=== PATIENT | male | born 1935 | race Caucasian/White ===

== ENCOUNTER 2018-03-12 08:46 | Day surgery (SDC) | payer MEDICARE ==
[~2018-03-12 08:46] MED LIST: Buffered Lidocaine 0.9% SYRIN* 5 ML/SYR SYRINGE INTRADERM ONE; Lactated Ringers 1000 ML Bag* 1,000 ML IV SCH
[2018-03-12] MEDS ORDERED: ceFAZolin 2 GM PREMIX in ORs 2 GM/50 ML BAG IVPB ONE (09:33)
[2018-03-12] MEDS ORDERED: Artificial Tear OPHTH.OINT* 3.5 GM ONE (10:12)
[2018-03-12] MEDS ORDERED: Lidocain 1% EPI 1:100,000 * 30 ML MDV ONE ×2 (10:12→10:32)
[2018-03-12] MEDS ORDERED: Mineral Oil Sterile, TOPICAL* 25 ML BTL ONE (10:13)
[2018-03-12] MEDS ORDERED: Bupivacaine 0.25% SDV PF* 10 ML VIAL INJ ONE (10:13)
[2018-03-12] MEDS ORDERED: Naloxone* 0.4 MG/ML 1 ML VIAL IV PRN (10:26)
[2018-03-12] MEDS ORDERED: fentaNYL* 50 MCG/ML 2 ML VIAL (100 MCG VIAL) ONE (10:36)
[2018-03-12] MEDS ORDERED: Propofol* 10 MG/ML 20 ML BTL ONE ×2 (10:37→11:46)
[2018-03-12] MEDS ORDERED: Lidocaine 2% PF * 5 ML VIAL ONE (10:57)
[2018-03-12 13:23] VITALS: BP 109/73
== END 2018-03-12 17:11 | disposition home or self-care (01) ==
LOC: OR 08:46
PROVIDERS: ATTEND Plastic Surgery
DX: C44.212 Basal cell carcinoma of skin of right ear and external auricular canal (principal); Z87.891 Personal history of nicotine dependence; Z85.828 Personal history of other malignant neoplasm of skin; M19.90 Unspecified osteoarthritis, unspecified site
CPT/HCPCS: 88305; 88331; 88332; A9270-GY; J0690; J2704; J3010; J3490

== ENCOUNTER 2019-03-09 05:39 | Day surgery (SDC) | payer MEDICARE ==
--- NOTE | 2019-02-18 10:25 | HP ---
AMENDED REPORT NOW INCLUDES DESIGNATED COSIGNER CC: Dr. Dao * PREOPERATIVE HISTORY AND PHYSICAL: DATE OF ADMISSION/SURGERY: 03/09/19 This patient is scheduled for same-day surgery admission by Dr. Morris on 03/09/19. DATE OF PREOPERATIVE HISTORY AND PHYSICAL EXAMINATION: 02/16/19. ATTENDING SURGEON: Dr. Raheel Morris * (dictated by Francisca Sanchez, BALJINDER). CHIEF COMPLAINT: Bilateral inguinal hernias. HISTORY OF PRESENT ILLNESS: The patient is an 83-year-old male recently evaluated by Dr. Morris for bilateral inguinal hernias. The patient reported that he had a "sore stomach" last June and again more recently; the symptoms started after he ate a whole bowl of popcorn. He denied any nausea or vomiting or change in bowel habits. He took some Tylenol with minimal relief and then went to see Dr. Dao, who is his primary care provider. He had a CAT scan of the abdomen and pelvis, which showed bilateral inguinal hernias. Dr. Morris examined the patient and noticed bilateral inguinal hernias, the right is fully reducible, the left incompletely reduced but nontender. Dr. Morris described the nature of inguinal hernias and discussed the various surgical options and the patient is in agreement to proceed with robotic bilateral inguinal hernia repair with mesh as a same-day surgery procedure under general anesthesia. Dr. Morris described the relevant risks and benefits and today, I described the expected postoperative care and recovery. The patient has had a chance to ask questions and stated that he understands the information and is satisfied with the answers given to his questions. He will sign surgical consent on the day of surgery. PAST MEDICAL HISTORY: Significant for hyperkalemia with most recent potassium of 5.6 on 12/30/18 and this will be repeated preoperatively; benign prostatic hypertrophy; and benign neoplasm of the colon. 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 MEDICATIONS: Vitamin B12 occasionally. He was on chlorthalidone 25 mg p.o. daily for 1 month and then declined another refill and I have notified Dr. Dao's office that he has discontinued that medication. He states that he was put on the chlorthalidone for high blood pressure and he knows that his blood pressure has been within normal range and decided to stop taking it. ALLERGIES: No known drug allergies. FAMILY HISTORY: No known anesthesia complications, bleeding tendencies, or clotting disorders. 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 He is a nonsmoker and denies the use of alcohol or other substances; he states that his son and grandson will be staying with him for several days postoperatively. REVIEW OF SYSTEMS: Constitutional: No fevers, chills, excessive fatigue, or weight loss. He has good energy and states that he can climb 3 flights of stairs without shortness of breath. General: No previous anesthesia complications. No history of deep vein thrombosis or pulmonary embolism. No bleeding tendencies or blood transfusions. ENMT: No problems with hearing. Moist mucous membranes. Endocrine: No diabetes or thyroid disease. Hematologic : No easy bruising or bleeding. Respiratory: He can climb 3 flights of stairs without dyspnea. No chronic cough. Cardiovascular: No anginal chest pain or palpitations. The patient saw Dr. Faith in January 2018 prior to undergoing plastic surgery on his ear and he had an echocardiogram at that time that revealed an ejection fraction of 55% to 60%. He also underwent a nuclear stress test with no evidence of ischemia or infarction and his 12-lead EKG showed normal sinus rhythm; I triaged Dr. Faith to see if this patient needed any preoperative clearance before this procedure and he said only if the patient was exhibiting cardiac symptoms and the patient is pain- free and as previously mentioned can walk up 3 flights of stairs without any difficulty. Gastrointestinal: No recent nausea or vomiting. No chronic constipation. No current abdominal pain. Please see history of present illness. Genitourinary: No dysuria. Musculoskeletal: Normal strength and tone. Integumentary: No chronic rashes or skin changes. Neurologic: No headache, blurred vision, or areas of focal weakness or numbness. Psychiatric: No anxiety, depression, or insomnia reported. PHYSICAL EXAMINATION GENERAL SURVEY: The patient is an 83-year-old male, well developed, well nourished, in no acute distress. VITAL SIGNS: Height 67 inches, weight 154 pounds, body mass index 24.1. Blood pressure 124/70, pulse 72 and regular, respiratory rate 16, temperature 98.1 tympanic. HEENT: Benign. NECK: Supple. No carotid bruits bilaterally. No cervical lymphadenopathy. LUNGS: Breath sounds bilaterally clear and equal. HEART: Regular rate and rhythm. No murmurs or rubs appreciated. ABDOMEN: Active bowel sounds. Soft, nondistended, nontender throughout. Well - healed surgical scar in right lower quadrant. Inguinal exam done by Dr. Morris revealed a fully reducible right inguinal hernia and an incompletely reduced but nontender left inguinal hernia. RECTAL: Exam deferred. EXTREMITIES: Warm without edema or skin ulceration. NEUROLOGIC: Alert and oriented x3. Steady gait. SKIN: Warm, dry, intact. IMPRESSION: Bilateral inguinal hernias. PLAN: Robotic bilateral inguinal hernia repair with mesh as a same-day surgery procedure with general anesthesia on 03/09/19; I will obtain a result of a preoperative potassium through Dr. Dao's office. DOTTIE SANCHEZ NP [id number]/[facility] #: [id number] GLADYS
[~2019-03-09 05:39] MED LIST changes: -Buffered Lidocaine 0.9% SYRIN* 5 ML/SYR SYRINGE INTRADERM ONE; +Buffered Lidocaine 1% SYRIN* 1 ML/SYRINGE INTRADERM ONE; -Lactated Ringers 1000 ML Bag* 1,000 ML IV SCH
[2019-03-09] MEDS ORDERED: NS 0.9% 1000 ML** 1,000 ML IV SCH (06:00)
[2019-03-09] MEDS ORDERED: Famotidine IV* 10 MG/ML 2 ML (20 mg) IV ONE (06:00)
[2019-03-09] MEDS ORDERED: ceFAZolin 2 GM PREMIX in ORs 2 GM/50 ML BAG ONE (06:20)
[2019-03-09] MEDS ORDERED: Buffered Lidocaine 1% SYRIN* 1 ML/SYRINGE INTRADERM ONE (06:20)
[2019-03-09] MEDS ORDERED: Famotidine IV* 10 MG/ML 2 ML (20 mg) ONE (06:21)
[2019-03-09] MEDS ORDERED: Bupivacaine 0.25% EPI 200,000* 30 ML SDV ONE (06:52)
[2019-03-09 06:58] LABS: BUN/Creatinine Ratio 20.7 (8-20); Calcium 9.9 mg/dL (8.6-10.3); Potassium 4.1 mmol/L (3.5-5.0)
[2019-03-09] MEDS ORDERED: fentaNYL* 50 MCG/ML 2 ML VIAL (100 MCG VIAL) ONE ×2 (07:13→11:17)
[2019-03-09] MEDS ORDERED: Dexamethasone IV* 4 MG/ML 1 ML (4 MG) ONE (07:13)
[2019-03-09] MEDS ORDERED: Lidocaine 2% MPF* 2 ML VIAL ONE (07:13)
[2019-03-09] MEDS ORDERED: Ondansetron INJ* 2 MG/ML VIAL ONE (07:13)
[2019-03-09] MEDS ORDERED: Propofol* 10 MG/ML 20 ML BTL ONE (07:13)
[2019-03-09] MEDS ORDERED: Ketorolac INJ* 30 MG/ML 1 ML VIAL ONE (07:13)
[2019-03-09] MEDS ORDERED: Rocuronium* 10 MG/ML VIAL ONE (07:14)
[2019-03-09] MEDS ORDERED: Midazolam* 1 MG/ML 5 ML VIAL (5 MG) ONE (07:14)
[2019-03-09] MEDS ORDERED: Sugammadex * 500 MG/5 ML VIAL IV PUSH ONE (07:29)
[2019-03-09] MEDS ORDERED: Levalbuterol HFA INHALER* 1 PUFF MDI ONE (07:31)
[2019-03-09] MEDS ORDERED: Phenylephrine 40 MCG/ML SYRINGE ONE (07:56)
[2019-03-09] MEDS ORDERED: Ondansetron INJ* 2 MG/ML VIAL IV PRN (08:38)
[2019-03-09] MEDS ORDERED: Levalbuterol 0.63MG/3ML NEB* UNIT OF USE INH PRN (08:38)
[2019-03-09] MEDS ORDERED: Acetaminophen IV 1GM/100ML * 1,000 MG/100 ML VIAL IVPB ONE (08:38)
[2019-03-09] MEDS ORDERED: Naloxone* 0.4 MG/ML 1 ML VIAL IV PRN (08:38)
[2019-03-09] MEDS ORDERED: EPHEDrine (Pressors)* 50 MG/ML VIAL ONE (09:27)
[2019-03-09] MEDS ORDERED: Acetaminophen IV 1GM/100ML * 100 ML ONE (10:27)
[2019-03-09] MEDS: fentaNYL* 50 MCG/ML 2 ML VIAL (100 MCG VIAL) IV PRN ×2 (11:18→11:57)
[2019-03-09] MEDS ORDERED: Levalbuterol 0.63MG/3ML NEB* UNIT OF USE INH ONE (12:18)
[2019-03-09 15:27] VITALS: BP 133/72
--- NOTE | 2019-03-09 22:33 | OP ---
CC: Ludwig Kaur MD * DATE OF OPERATION: 03/09/19 - SDS DATE OF : 31 SURGEON: Raheel Morris MD [employer] EDUCATIONAL SPECIALIST: VALENTÍN Callahan ANESTHESIOLOGIST: Juan Diego Atkinson MD ANESTHESIA: General endotracheal. PRE-OP DIAGNOSIS: Bilateral inguinal hernias. POST-OP DIAGNOSIS: Bilateral direct inguinal hernias. OPERATIVE PROCEDURE: Robotic bilateral inguinal hernia repair with mesh. ESTIMATED BLOOD LOSS: Minimal. IV FLUIDS: Crystalloid. SPECIMEN: None. DRAINS: None. COMPLICATIONS: None. COUNTS: Instrument, needle, and sponge counts were correct. DESCRIPTION OF PROCEDURE: The patient was brought to the operating room and placed on the table supine. Sequential compression devices were placed on both lower extremities. General anesthesia was administered. Booth catheter was placed. The patient was positioned and padded appropriately. He was prepped and draped in the usual sterile fashion. A time-out was performed. Local anesthetic was infiltrated into the skin and soft tissue prior to making each incision. Pneumoperitoneum was achieved using a Veress needle to a pressure of 12 mmHg. Subsequently, an 8 mm trocar was placed in the left upper quadrant and additionally two other 8 mm trocars, one in the supraumbilical midline and one in the right upper quadrant. Laparoscopic Medtronic ProGrip mesh was introduced x2 along with the 3-0 V-Loc 90 sutures. The robot was docked in standard fashion. The right inguinal hernia was first approached. Peritoneal incision was made 8 cm cephalad to the inguinal canal. The preperitoneal space was developed using blunt dissection down to the pubic symphysis. Direct inguinal hernia was identified, containing fat; this was reduced. Chris's ligament was identified. Inferior epigastric vessels were identified and preserved. Dissection proceeded laterally to the anterior superior iliac spine. Spermatic cord structures were identified and preserved. A 10 x 15 cm ProGrip mesh was positioned crossing the midline to cover the direct, indirect and femoral spaces. Subsequently, the peritoneal flap was closed with the V-Loc 90 suture. There were some rents in the peritoneum due to its fragile nature. Attention was then turned to the left side. In a similar fashion, the preperitoneal space was entered on the left side and again there was a direct inguinal hernia containing a fat, which was completely reduced. Dissection then again proceeded laterally to the anterior superior iliac spine preserving the cord structures. No indirect inguinal hernia was identified. Mesh was again positioned crossing the midline. Again, it was the Medtronic laparoscopic ProGrip mesh. After positioning this, the peritoneal flap was closed again with a 3-0 V-Loc 90 suture. At this point, inspection of the right side was again performed and it was decided to place additional sutures of 3-0 Vicryl to close down the peritoneal defect and this was achieved satisfactorily. All needles were removed and the instrumentation and trocars were removed without difficulty. Carbon dioxide was released. Skin incisions were closed with 4-0 Monocryl in subcuticular fashion and DermaFlex applied. The patient tolerated the procedure well, was extubated and transferred to Recovery in stable condition. [id number]/[facility] #: [id number] MTDD
== END 2019-03-09 15:52 | disposition home or self-care (01) ==
LOC: OR 05:39
PROVIDERS: ATTEND Surgery
DX: K40.20 Bilateral inguinal hernia, without obstruction or gangrene, not specified as recurrent (principal); I10 Essential (primary) hypertension; Z87.891 Personal history of nicotine dependence; N40.0 Benign prostatic hyperplasia without lower urinary tract symptoms; E87.5 Hyperkalemia
CPT/HCPCS: 49650; S2900; 36415; 80048; A9270-GY; C1781; J0690; J1100; J1885; J2250; J2405; J2704; J3010

== ENCOUNTER 2020-04-28 13:53 | Observation (INO) ==
[2020-04-28 14:42] LABS: ABS Lymphocytes 0.7 10^3/ul (1.0-4.8); ABS Monocytes 0.6 10^3/ul (0-0.8); ABS Neutrophils 5.3 10^3/ul (1.5-7.7); Eosinophil % 0.4 %; Hematocrit 41 % (42-52); Hemoglobin 14.3 g/dL (14.0-18.0); Lymphocyte % 10.6 %; Mean Corpuscular HGB Conc 35 g/dL (31-36); Mean Corpuscular Hemoglobin 33 pg (27-31); Mean Corpuscular Volume 94 fL (80-94); Mean Platelet Volume 6.8 fL (7.4-10.4); Nucleated Red Blood Cells % 0.1; Platelet Count 265 10^3/uL (150-450); Red Blood Count 4.36 10^6 /uL (4.18-5.48); Red Cell Distribution Width 14 % (10-15); White Blood Count 6.6 10^3/uL (3.5-10.8)
[2020-04-28 14:49] LABS: Activated Partial Thrombo Time 29.6 seconds (26.0-38.0)
[2020-04-28 15:14] LABS: CKMB ng/mL 2.9 ng/mL (0.6-6.3)
[2020-04-28 15:40] LABS: Albumin 4.4 g/dL (3.2-5.2); Albumin/Globulin Ratio 1.3 (1-3); BUN/Creatinine Ratio 16.7 (8-20); C Reactive Protein 17.14 mg/L (<8.01); Calcium 9.4 mg/dL (8.6-10.3); EGFR African American 78.4 (>60); EGFR Non-African American 64.8 (>60); Globulin 3.5 g/dL (2-4); Potassium 4.2 mmol/L (3.5-5.0); Total Bilirubin 0.6 mg/dL (0.2-1.0); Total Protein 7.9 g/dL (6.4-8.9)
[2020-04-28] MEDS ORDERED: Dexamethasone IV 4 MG/ML 5 ML VIAL (20 MG) IVPB ONE (16:01)
[2020-04-28 16:30] LABS: Troponin I 0.02 ng/mL (<0.03)
[2020-04-28] MEDS ORDERED: Dexamethasone IV 10 MG in NS 0.9% 50 ML IVPB ONE (17:00)
[2020-04-28 17:23] LABS: Urine Appearance Clear; Urine Bilirubin Negative (Negative); Urine Blood Negative (Negative); Urine Color Yellow; Urine Glucose Negative (Negative); Urine Ketones Trace (Negative); Urine Nitrite Negative (Negative); Urine Protein Negative (Negative); Urine Urobilinogen Negative (Negative)
[2020-04-28 17:39] LABS: Influenza A Molecular Negative (Negative); Influenza B Molecular Negative (Negative)
[2020-04-28] MEDS ORDERED: Albuterol HFA INHALER 8 gm MDI INH PRN (17:55)
[2020-04-28] MEDS ORDERED: Iohexol 350 (CONTRAST) 500 ML MDV IV ONE (18:20)
[2020-04-28] MEDS ORDERED: Enoxaparin 40 MG/0.4 ML SYR SUBCUT SCH (21:00)
[2020-04-29 11:15] VITALS: BP 135/66
== END 2020-04-29 12:45 | disposition home or self-care (01) ==
LOC: ED 13:53 → MED 13:53
PROVIDERS: ADMIT Internal Medicine; ATTEND Internal Medicine

== ENCOUNTER 2022-04-09 11:40 | Observation (INO) ==
[2022-04-09] MEDS ORDERED: Albuterol HFA INHALER 8 gm MDI INH ONE (12:03)
[2022-04-09] MEDS ORDERED: methylPREDNISolone SOD SUCC 125 mg 2 ML VIAL IV ONE (12:03)
[2022-04-09 12:31] LABS: ABS Lymphocytes 0.8 10^3/ul (1.0-4.8); ABS Monocytes 0.4 10^3/ul (0-0.8); Eosinophil % 0.3 %; Hematocrit 42 % (42-52); Hemoglobin 14.1 g/dL (14.0-18.0); Lymphocyte % 15.2 %; Mean Corpuscular HGB Conc 34 g/dL (31-36); Mean Corpuscular Hemoglobin 33 pg (27-31); Mean Corpuscular Volume 96 fL (80-94); Mean Platelet Volume 6.9 fL (7.4-10.4); Platelet Count 260 10^3/uL (150-450); Red Blood Count 4.33 10^6 /uL (4.18-5.48); Red Cell Distribution Width 14 % (10-15); White Blood Count 5.3 10^3/uL (3.5-10.8)
[2022-04-09 12:41] LABS: INR 1.09 (0.88-1.18)
[2022-04-09 12:50] LABS: PCO2 Arterial 38 mmHg (35-45); PO2 Arterial 83 mmHg (80-100)
[2022-04-09 13:14] LABS: Albumin 4.6 g/dL (3.2-5.2); Albumin/Globulin Ratio 1.6 (1-3); Calcium 9.6 mg/dL (8.6-10.3); Globulin 2.8 g/dL (2-4); Potassium 4.4 mmol/L (3.5-5.0); Total Bilirubin 0.8 mg/dL (0.2-1.0); Total Protein 7.4 g/dL (6.4-8.9); eGFR CKD-EPI 60.6 (>60)
[2022-04-09] MEDS ORDERED: Amoxicillin/Clavul 875/125 TAB (Augmentin 875 tab) PO ONE (13:28)
[2022-04-09] MEDS ORDERED: Albuterol/Ipratropium NEB.SOL (2.5/0.5 MG) 3 ML NEB.SOLN INH ONE (13:38)
[2022-04-09 14:06] LABS: High Sensitivity Troponin 1 Hr 10 pg/mL (<20)
[2022-04-09] MEDS ORDERED: Magnesium Sulfate IV 1GM/100ML 1 GM/100 ML BAG IV ONE (15:34)
[2022-04-09] MEDS ORDERED: Metoprolol Tartrate 5 mg VIAL 5 ml VIAL (1 mg/ml) IV ONE (16:43)
[2022-04-09] MEDS ORDERED: Levalbuterol HFA INHALER MDI INH PRN (17:34)
[2022-04-09] MEDS ORDERED: cefTRIAXone 1 gm/50 mL D5W 1 GM/50 ML BAG IV SCH (17:45)
[2022-04-09 17:57] LABS: C Reactive Protein 3.04 mg/L (<8.01)
[2022-04-09] MEDS ORDERED: Enoxaparin 40 MG/0.4 ML SYR SUBCUT SCH (18:00)
[2022-04-09 18:12] LABS: TSH Ultra Thyroid Stim Horm 4.36 mcIU/mL (0.34-5.60)
[2022-04-09] MEDS ORDERED: Saline NASAL SPRAY 0.65% BTL BOTH NARES PRN (22:10)
[2022-04-09] MEDS ORDERED: VERAPAMIL 2.5 MG/ML 2 ML VIAL ** 5 mg/2 ml IV SLOW PU ONE (23:20)
[2022-04-10] MEDS ORDERED: Azithromycin 500 mg/250 ml NS 500 MG/250 ML BAG IVPB SCH (08:00)
[2022-04-10 14:43] VITALS: BP 108/90
== END 2022-04-10 15:40 | disposition home or self-care (01) ==
LOC: MEDTELE 11:40 → ED 11:40 → SUATTDRO 17:30 → ED 20:49
PROVIDERS: ADMIT Hospitalist; ATTEND Hospitalist